=== PATIENT | male | born 1975 | race American Indian/Alaskan Native ===

== ENCOUNTER 2017-01-29 14:54 | Emergency (ER) | payer OTHER ==
[2017-01-29] MEDS ORDERED: NACL 0.9% 1000 ML 1,000 ML IV ONE (16:35)
[2017-01-29] MEDS ORDERED: BOOSTRIX IM ONE (16:41)
[2017-01-29 17:01] LABS: Basophils % (Auto) 0.2 % (0.0-1.8); Eosinophils % (Auto) 0.1 % (0.0-4.3); Hematocrit 45.3 % (35.5-45.6); Hemoglobin 15.1 gm/dl (11.8-15.2); Mean Corpuscular HGB Conc 33 % (32-34); Mean Corpuscular Hemoglobin 28 pg (28-32); Mean Corpuscular Volume 83 fl (84-94); Platelet Count 168 K/mm3 (140-440); Red Blood Count 5.46 M/mm3 (3.65-5.03); Red Cell Distribution Width 13.8 % (13.2-15.2); White Blood Count 8.9 K/mm3 (4.5-11.0)
[2017-01-29] MEDS ORDERED: NACL ONE (17:03)
[2017-01-29 17:17] LABS: Alanine Aminotransferase 41 units/L (7-56); Albumin 4.3 g/dL (3.9-5); Albumin/Globulin Ratio 1.2 %; Alkaline Phosphatase 43 units/L (35-129); Anion Gap 17 mmol/L; Blood Urea Nitrogen 11 mg/dL (9-20); Calcium 8.7 mg/dL (8.4-10.2); Carbon Dioxide 26 mmol/L (22-30); Chloride 101.2 mmol/L (98-107); Glucose 92 mg/dL (75-100); Potassium 4.1 mmol/L (3.6-5.0); Sodium 140 mmol/L (137-145); Total Protein 7.8 g/dL (6.3-8.2)
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
[2017-01-29 17:38] LABS: Bilirubin,Urine NEG (Negative); Blood,Urine NEG (Negative); Ketones,Urine NEG (Negative); Leukocyte Esterase,Urine NEG (Negative); Mucus,Urine FEW /HPF; Nitrite,Urine NEG (Negative); Urobilinogen,Urine < 2.0 mg/dL (<2.0)
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
[2017-01-29] MEDS ORDERED: MORPHINE ONE (19:07)
[2017-01-29] MEDS ORDERED: ZOFRAN ONE (19:08)
[2017-01-29 19:33] VITALS: BP 132/88
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
== END 2017-01-29 21:27 | disposition home or self-care (01) ==
LOC: ED 14:54
DX: S93.402A Sprain of unspecified ligament of left ankle, initial encounter (principal); S50.01XA Contusion of right elbow, initial encounter; S50.02XA Contusion of left elbow, initial encounter; S40.021A Contusion of right upper arm, initial encounter; V89.2XXA Person injured in unspecified motor-vehicle accident, traffic, initial encounter; Y93.9 Activity, unspecified; Y92.9 Unspecified place or not applicable; Y99.9 Unspecified external cause status
CPT/HCPCS: 29105; 36415; 70450; 71010; 72125; 72170; 73060; 73080; 73610; 74177; 80053; 81001; 85025; 99284; J2270; J2405; Q9967